=== PATIENT | male | born 1950 | race Caucasian/White ===

== ENCOUNTER 2021-05-18 07:22 | Day surgery (SDC) | payer OTHER ==
[2021-05-13 09:40] VITALS: BMI 24.4
[2021-05-18] MEDS ORDERED: CYCLOPENTOLATE 2% OPHTH SOLN 2 ML BOTTLE ONE (07:29)
[2021-05-18] MEDS ORDERED: TROPICAMIDE 1% OPHTH SOLN 15 ML BOTTLE ONE (07:29)
[2021-05-18] MEDS ORDERED: CIPROFLOXACIN 0.3% EYE DROPS 5 ML BOTTLE ONE (07:30)
[2021-05-18] MEDS ORDERED: PHENYLEPHRINE 2.5% OPHTH SOLN 15 ML BOTTLE ONE (07:30)
[2021-05-18] MEDS ORDERED: CIPROFLOXACIN 0.3% EYE DROPS 5 ML BOTTLE OD ONE ×3 (07:40→07:50)
[2021-05-18] MEDS ORDERED: CYCLOPENTOLATE 2% OPHTH SOLN 2 ML BOTTLE OD ONE ×3 (07:40→07:50)
[2021-05-18] MEDS ORDERED: PHENYLEPHRINE 2.5% OPHTH SOLN 15 ML BOTTLE OD ONE ×3 (07:40→07:50)
[2021-05-18] MEDS ORDERED: TROPICAMIDE 1% OPHTH SOLN 15 ML BOTTLE OD ONE ×3 (07:40→07:50)
[2021-05-18] MEDS ORDERED: LIDOCAINE 1% P/F 10 MG/ML VIAL ONE (07:42)
[2021-05-18] MEDS ORDERED: TETRACAINE 0.5% OPHTH SOLN 2 ML BOTTLE ONE (07:42)
[2021-05-18] MEDS ORDERED: CARBACHOL 0.01% INTRA-OCULAR 1.5 ML VIAL ONE (07:42)
[2021-05-18] MEDS ORDERED: NEO/POLYMYX B SULF/DEXAMETH OPHTHALMIC 5ML BOTTLE ONE (07:42)
[2021-05-18] MEDS ORDERED: BSS (NA/CA/MG/K) BALANCED SALT SOLUTION OPHTH SOLN 15 ML BOTTLE ONE (07:42)
[2021-05-18] MEDS ORDERED: MIDAZOLAM HCL 2 MG/2 ML SINGLE DOSE VIAL ONE (09:28)
[2021-05-18 09:57] VITALS: TEMP 98
[2021-05-18 10:14] VITALS: BP 153/64; PULSE 68
== END 2021-05-18 10:20 | disposition home or self-care (01) ==
LOC: FASU 07:22
PROVIDERS: ATTEND Ophthalmology
PROC: 08NC3ZZ Release Right Iris, Percutaneous Approach (ICD-10-PCS; 2021-05-18)
PROC: 08RJ3JZ Replacement of Right Lens with Synthetic Substitute, Percutaneous Approach (ICD-10-PCS; principal; 2021-05-18 09:33)
DX: H26.8 Other specified cataract (principal); H21.541 Posterior synechiae (iris), right eye
CPT/HCPCS: 82962

== ENCOUNTER 2023-05-09 09:00 | Day surgery (SDC) | payer OTHER ==
[2023-05-04 14:09] VITALS: BMI 24.4
[2023-05-09] MEDS: CIPROFLOXACIN 0.3% EYE DROPS 5 ML BOTTLE ONE ×3 (09:25→09:35)
[2023-05-09] MEDS: CYCLOPENTOLATE 2% OPHTH SOLN 2 ML BOTTLE ONE ×3 (09:25→09:35)
[2023-05-09] MEDS: TROPICAMIDE 1% OPHTH SOLN 15 ML BOTTLE ONE ×3 (09:25→09:35)
[2023-05-09] MEDS: PHENYLEPHRINE 2.5% OPTHALMIC DROP 2ML BOTTLE ONE ×3 (09:25→09:35)
[2023-05-09] MEDS ORDERED: LIDOCAINE 1% P/F 10 MG/ML VIAL ONE (10:12)
[2023-05-09] MEDS ORDERED: CARBACHOL 0.01% INTRA-OCULAR 1.5 ML VIAL ONE (10:13)
[2023-05-09] MEDS ORDERED: NEO/POLYMYX B SULF/DEXAMETH OPHTHALMIC 5ML BOTTLE ONE (10:13)
[2023-05-09] MEDS ORDERED: TETRACAINE 0.5% OPHTH SOLN 2 ML BOTTLE ONE (10:13)
[2023-05-09] MEDS ORDERED: BSS (NA/CA/MG/K) BALANCED SALT SOLUTION OPHTH SOLN 15 ML BOTTLE ONE (10:13)
[2023-05-09] MEDS ORDERED: MIDAZOLAM HCL 2 MG/2 ML SINGLE DOSE VIAL ONE (10:46)
[2023-05-09 11:25] VITALS: BP 124/72; PULSE 75; RESP 18; TEMP 97.6
== END 2023-05-09 11:48 | disposition home or self-care (01) ==
LOC: FASU 09:00
PROVIDERS: ATTEND Ophthalmology
PROC: 08RK3JZ Replacement of Left Lens with Synthetic Substitute, Percutaneous Approach (ICD-10-PCS; principal; 2023-05-09 10:50)
DX: H26.8 Other specified cataract (principal)
CPT/HCPCS: 66984; V2632; 82962